=== PATIENT | male | born 1945 | race Caucasian/White ===

== ENCOUNTER → 2019-05-29 | Outpatient (CLI) | payer MEDICARE ==
[2016-09-01 21:05] VITALS: BP 124/82
[~2019-05-29] MED LIST: CEPH-264 PO
--- NOTE | 2019-05-29 11:20 | KCIC ---
EXAM: Right shoulder, 3 views. HISTORY: Pain. Fall. COMPARISON: None. FINDINGS: 3 views of the right shoulder obtained. There is no fracture, dislocation or subluxation. There is a small inferiorly directed distal clavicular spur. IMPRESSION: No acute osseous finding. Electronically signed by: Rosalia Bojorquez MD (05/29/2019 11:17 AM) [id number]
== END | disposition home or self-care (01) ==
LOC: KCIC 09:19
PROVIDERS: ATTEND Family Medicine
DX: M75.81 Other shoulder lesions, right shoulder (principal); W11.XXXA Fall on and from ladder, initial encounter; Y93.89 Activity, other specified; Y92.89 Other specified places as the place of occurrence of the external cause; Y99.8 Other external cause status
CPT/HCPCS: 73030

== ENCOUNTER → 2019-06-24 | Outpatient (CLI) | payer MEDICARE ==
[2016-09-01 21:05] VITALS: BP 124/82
--- NOTE | 2019-06-24 14:02 | KCIC ---
MR of the right shoulder HISTORY: Right shoulder pain after lifting injury a few months ago. TECHNIQUE: Routine multiplanar sequences are obtained. FINDINGS: Acromioclavicular joint is mildly degenerative. Undersurface osteophytes with mass effect. Rotator cuff tendinosis. Ill-definition of the bursal layer of the rotator cuff with partial thickness superficial tearing and fraying. No high-grade rupture or retraction. Trace subdeltoid bursal effusion. No significant glenohumeral joint effusion. Small defect at the base of the posterosuperior labrum compatible with a small tear. Mild degenerative changes at the glenohumeral joint. Biceps tendon demonstrates mild tendinosis but no rupture. No aggressive bone destruction. No evidence of acute fracture. No acute soft tissue abnormality. IMPRESSION: 1. Rotator cuff tendinosis. Superficial bursal layer tearing or fraying without large defect or complete rupture. 2. Small posterosuperior labral degenerative tear. 3. 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 Electronically signed by: Derek Torres MD (06/24/2019 1:59 PM) [id number]
== END | disposition home or self-care (01) ==
LOC: KCIC MRI 12:26
PROVIDERS: ATTEND Family Medicine
DX: S43.491A Other sprain of right shoulder joint, initial encounter (principal); M19.011 Primary osteoarthritis, right shoulder; M75.101 Unspecified rotator cuff tear or rupture of right shoulder, not specified as traumatic; M75.81 Other shoulder lesions, right shoulder; M25.711 Osteophyte, right shoulder; X58.XXXA Exposure to other specified factors, initial encounter; Y93.89 Activity, other specified; Y92.89 Other specified places as the place of occurrence of the external cause; Y99.8 Other external cause status
CPT/HCPCS: 73221

== ENCOUNTER 2020-06-12 12:01 | Emergency (ER) | payer MEDICARE ==
[~2020-06-12] VITALS: Ht 175.3 cm; Wt 88.6 kg
[2020-06-12 13:00] VITALS: BP 129/78
[2020-06-12 14:15] LABS: INFLUENZA A PATIENT NEGATIVE (NEGATIVE); INFLUENZA B PATIENT NEGATIVE (NEGATIVE)
--- NOTE | 2020-06-12 14:34 | PHYS DOC ---
General Adult EDM: Chief Complaint: FEVER HPI: HPI: Patient is a 75 year old male who presents to the ED today complaining of subjective fevers and chills for 2 weeks. 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 He states he would like to be tested for viruses only. Denies any chest pain, shortness of breath. He is in the ED with the being evaluated for similar symptoms. He states he is already on hydroxychloroquine to prevent COVID-19. (JOSIE VERNON APRN) Review of Systems: Review of Systems: Constitutional: Reports subjective fevers and chills Eyes: Denies change in visual acuity. [] HENT: Denies nasal congestion or sore throat. [] Respiratory: Denies cough or shortness of breath. [] Cardiovascular: Denies chest pain or edema. [] GI: Denies abdominal pain, nausea, vomiting, bloody stools or diarrhea. [] : Denies dysuria. [] Musculoskeletal: Denies back pain or joint pain. [] Integument: Denies rash. [] Neurologic: Denies headache, focal weakness or sensory changes. [] Psychiatric: Denies depression or anxiety. [] (JOSIE VERNON APRN) Heart Score: Risk Factors: Risk Factors: DM, Current or recent (<one month) smoker, HTN, HLP, family history of CAD, obesity. Risk Scores: Score 0 - 3: 2.5% MACE over next 6 weeks - Discharge Home Score 4 - 6: 20.3% MACE over next 6 weeks - Admit for Clinical Observation Score 7 - 10: 72.7% MACE over next 6 weeks - Early Invasive Strategies (JOSIE VERNON APRN) Allergies: Allergies: Allergies Coded Allergies Type Severity Reaction Last Updated Verified No Known Drug Allergies 07/22/15 No (JOSIE VERNON APRN) Physical Exam: PE: Constitutional: Well developed, well nourished, no acute distress, non-toxic appearance. [] HENT: Normocephalic, atraumatic, bilateral external ears normal, oropharynx moist, no oral exudates, nose normal. [] Eyes: PERRLA, EOMI, conjunctiva normal, no discharge. [] Neck: Normal range of motion, no tenderness, supple, no stridor. [] Cardiovascular:Heart rate regular rhythm, no murmur [] Lungs & Thorax: Bilateral breath sounds clear to auscultation [] Abdomen: Bowel sounds normal, soft, no tenderness, no masses, no pulsatile masses. [] Skin: Warm, dry, no erythema, no rash. [] Back: No tenderness, no CVA tenderness. [] Extremities: No tenderness, no cyanosis, no clubbing, ROM intact, no edema. [] Neurologic: Alert and oriented X 3, normal motor function, normal sensory function, no focal deficits noted. [] Psychologic: Affect normal, judgement normal, mood normal. [] (JOSIE VERNON APRN) Current Patient Data: Labs: Laboratory Tests Test 06/12/20 13:28 Influenza Type A Antigen Negative (NEGATIVE) Influenza Type B Antigen Negative (NEGATIVE) Vital Signs: Vital Signs Date Time Temp Pulse Resp B/P (MAP) Pulse Ox O2 Delivery O2 Flow Rate FiO2 06/12/20 13:00 99.2 54 16 99 99.2 (JOSIE VERNON APRN) EKG: EKG: [] (JOSIE VERNON APRN) Radiology/Procedures: Radiology/Procedures: [] (JOSIE VERNON APRN) Course & Med Decision Making: Course & Med Decision Making Pertinent Labs and Imaging studies reviewed. (See chart for details) This is a 75-year-old male patient presenting to the ED today complaining of fevers and chills that began 2 weeks ago. Patient has refused any other testing other than COVID and influenza. Influenza test is negative. COVID testing results will be called to him as soon as they become available. Recommended he quarantines himself. Supportive care measures also recommended. (JOSIE VERNON APRN) Dragon Disclaimer: Dragon Disclaimer: This electronic medical record was generated, in whole or in part, using a voice recognition dictation system. (JOSIE VERNON APRN) Departure Departure Impression: Primary Impression: Person under investigation for COVID-19 Additional Impression: Fever Qualified Codes: R50.9 - Fever, unspecified Disposition: 01 HOME, SELF-CARE Condition: STABLE Referrals: MO BLUE MD (PCP) follow up in 1-2 weeks Patient Instructions: Fever, Adult Additional Instructions: You were tested for influenza and COVID19. Your Influenza test is negative. The COVID19 test is pending. We will call you in the course of next week with results. In the meantime quarantine yourself until you hear from us. Push fluids, maintain good hand hygiene. Take Tylenol as needed for fever body aches or chills. Follow-up with your doctor in the next 1 to 2 weeks. Come back to the ED at any point symptoms worsen Justicifation of Admission Dx: Justifications for Admission: Justification of Admission Dx: N/A (JOSIE VERNON APRN) Attending Signature Attending Signature I have reviewed the PA/SCREEN PRINTING PASTER's note and plan of care. I was available for consultation as needed during the patient's visit in the emergency department. I agree with the clinical impression, plan, and disposition. (JAYCE MILLER DO) JOSIE VERNON APRN Jun 12, 2020 14:34 JAYCE MILLER DO Jun 13, 2020 06:19
== END 2020-06-12 15:18 | disposition home or self-care (01) ==
LOC: ER 12:01
DX: U07.1 COVID-19 (principal); R50.9 Fever, unspecified
CPT/HCPCS: 87804; 99283; C9803; U0003